=== PATIENT | female | born 1965 | race Caucasian/White ===

== ENCOUNTER → 2017-08-19 | Outpatient (CLI) | payer BC ==
[~2017-08-19] MED LIST: CARI350T27 PO; HYDR-34 PO; LEVO1TAB18 PO; SUMA100T3 PO; TRAZ-28 PO
--- NOTE | 2017-08-19 09:24 | Diagnostic Imaging Report ---
INDICATION: Routine screening. COMPARISON: 07/14/2015. TECHNIQUE: Screening digital mammography was performed bilaterally with a Computer Aided Detection (CAD) system. FINDINGS: Scattered fibroglandular densities are identified bilaterally. No discrete mass or malignant appearing microcalcifications are seen. The axillae are unremarkable. IMPRESSION: No mammographic features suspicious for malignancy are identified. ACR BI-RADS Category 1: Negative. Result letter will be mailed to the patient. Note: At least 10% of breast cancer is not imaged by mammography. Dictated by: Dictated on workstation # [id number]
== END ==
LOC: RAD 07:44
PROVIDERS: ATTEND Nurse Practitioner
DX: Z12.31 Encounter for screening mammogram for malignant neoplasm of breast (principal)
CPT/HCPCS: 77067

== ENCOUNTER → 2018-05-21 | Outpatient (CLI) | payer BC ==
[~2018-05-21] MED LIST changes: +TRAZ-189 PO; -TRAZ-28 PO
--- NOTE | 2018-05-21 12:39 | Diagnostic Imaging Report ---
PROCEDURE: MRI lumbar spine. TECHNIQUE: Multiplanar, multisequence MRI of the lumbar spine was performed without contrast. INDICATION: Back pain. FINDINGS: The previous MRI lumbar spine exam of 03/03/2013 noted degenerative disc and bony disease at L5-S1 but failed to show any sign of spinal stenosis or nerve root encroachment at this level. On this exam, the degenerative disc and bony disease at the L5-S1 level seen previously is again evident and does not seem to have progressed. There is a disc bulge eccentric to the right at this level but there is no significant central stenosis identified. There does not appear to be any neuroforaminal narrowing either. The thecal sac is relatively generous. There is no sign of spinal stenosis or nerve root encroachment at any level. There is no abnormal signal arising from the cord or other vertebral bodies to indicate an acute abnormality. There is no sign of a paraspinal mass. IMPRESSION: 1. The degenerative disc and bony disease at L5-S1 seen previously has not progressed. There is still no evidence for spinal stenosis or nerve root encroachment at this level. 2. The remainder of the lumbar spine is stable as well. No new area of spinal stenosis or nerve root encroachment has developed. 3. There is no sign of an acute bony abnormality or of a cord lesion. Dictated by: Dictated on workstation # [id number]
== END ==
LOC: RAD 11:20
PROVIDERS: ATTEND Nurse Practitioner
DX: M51.37 Other intervertebral disc degeneration, lumbosacral region (principal); M89.9 Disorder of bone, unspecified
CPT/HCPCS: 72148

== ENCOUNTER → 2018-08-26 | Outpatient (CLI) | payer BC | LOC: CARD 13:11 | PROVIDERS: ATTEND Internal Medicine Cardiovascular Disease | DX: I08.1 Rheumatic disorders of both mitral and tricuspid valves (principal); R06.02 Shortness of breath; E78.2 Mixed hyperlipidemia; E66.9 Obesity, unspecified; R07.9 Chest pain, unspecified | CPT/HCPCS: 93306 ==

== ENCOUNTER → 2018-09-22 | Outpatient (CLI) | payer BC | LOC: CARD 10:20 | PROVIDERS: ATTEND Internal Medicine Cardiovascular Disease | DX: R07.9 Chest pain, unspecified (principal); R06.02 Shortness of breath; E78.2 Mixed hyperlipidemia; I08.1 Rheumatic disorders of both mitral and tricuspid valves; E66.9 Obesity, unspecified; Z68.28 Body mass index [BMI] 28.0-28.9, adult | CPT/HCPCS: 93351 ==

== ENCOUNTER → 2022-03-15 | Outpatient (CLI) | payer BC ==
[~2022-03-15] MED LIST changes: -TRAZ-189 PO; +TRZ50T PO
--- NOTE | 2022-03-15 13:32 | Diagnostic Imaging Report ---
Indication: Routine screening. Comparison is made with prior mammogram 08/19/2017 and 07/14/2015. 2-D and 3-D bilateral screening mammography was performed with CAD. CAD is utilized. The current study was also evaluated with a Computer Aided Detection (CAD) system. Scattered fibroglandular densities are identified bilaterally. There is a density in the right breast medial to the nipple line at mid depth best seen on the CC view which appears more prominent. Additional views are recommended. No definite correlate on the MLO view is seen. The left breast is unremarkable. No malignant-appearing microcalcifications are seen. Axillae are unremarkable. IMPRESSION: BI-RADS 0 Right breast density. Additional views are recommended for further evaluation. ACR BI-RADS Category 0: Incomplete. (Needs additional imaging evaluation). Result letter will be mailed to the patient. Note: At least 10% of breast cancer is not imaged by mammography. Dictated by: Dictated on workstation # [id number]
== END ==
LOC: RAD 10:15
PROVIDERS: ATTEND Nurse Practitioner
DX: Z12.31 Encounter for screening mammogram for malignant neoplasm of breast (principal)
CPT/HCPCS: 77063; 77067

== ENCOUNTER → 2022-03-26 | Outpatient (CLI) | payer BC ==
--- NOTE | 2022-03-26 15:41 | Diagnostic Imaging Report ---
INDICATION: Right breast density. COMPARISON: Correlation is made with the diagnostic mammogram from earlier this same day and screening mammogram from 03/15/2022. FINDINGS: Sonographic interrogation of the medial right breast was performed. There is a tiny hypoechoic nodule at the 3:30 location 3 to 4 cm from the nipple measuring 3 mm x 4 mm x 4 mm. No internal vascularity is seen. This has benign features. IMPRESSION: Benign-appearing hypoechoic nodule at the 3:30 location of the right breast, likely accounting for the mammographic density. Even so, followup right mammogram and right breast ultrasound in 6 months is recommended to show continued stability. ACR BI-RADS Category 3: Probably benign findings. Dictated by: Dictated on workstation # [id number]
--- NOTE | 2022-03-26 19:25 | Diagnostic Imaging Report ---
INDICATION: Right breast density. Patient presents for additional views. Correlation is made with screening study from 03/15/2022 Unilateral right 2-D and 3-D diagnostic mammography was performed with CAD. Secluded spot compression CC as well as spot compression mediolateral and conventional mediolateral views. Additional views show a persistent nodular density in the medial right breast approximately 4 cm from the nipple. No other abnormalities are seen. IMPRESSION: BI-RADS 0 Persistent density medial right breast at approximately the 3:00 location 4 cm from the nipple. Further evaluation with ultrasound is recommended and will be performed today. ACR BI-RADS Category 0: Incomplete. (Needs additional imaging evaluation). Result letter will be mailed to the patient. Note: At least 10% of breast cancer is not imaged by mammography. Dictated by: Dictated on workstation # [id number]
== END ==
LOC: RAD 12:29
PROVIDERS: ATTEND Nurse Practitioner
DX: N63.14 Unspecified lump in the right breast, lower inner quadrant (principal)
CPT/HCPCS: 76642; 77065; G0279

== ENCOUNTER → 2022-10-03 | Outpatient (CLI) | payer BC ==
--- NOTE | 2022-10-03 14:06 | Diagnostic Imaging Report ---
INDICATION: Right breast nodule. Patient presents for followup. Correlation is made with diagnostic mammogram earlier same day as well as prior right breast ultrasound from 03/26/2022. Sonographic interrogation medial right breast was performed. Tiny cyst 3:30 location, 3-4 cm from the nipple is noted measuring 3 mm x 2 mm x 3 mm. This is compared with 4 x 4 x 3 mm on prior exam. No internal vascularity is seen. No other masses are identified. IMPRESSION: Slight decrease in size of a simple cyst 3:30 location right breast when compared to examination from 6 months earlier. Patient may return to routine annual screening mammography in 6 months. ACR BI-RADS Category 2: Benign findings. Result letter will be mailed to the patient. Note: At least 10% of breast cancer is not imaged by mammography. BI-RADS Category 2 Dictated by: Dictated on workstation # [id number]
--- NOTE | 2022-10-03 15:48 | Diagnostic Imaging Report ---
INDICATION: Right breast nodule. Patient presents for six-month followup. Correlation is made with prior mammogram from 03/15/2022 and 08/19/2017. Unilateral right 2-D and 3-D diagnostic mammography was performed with CAD. Scattered fibroglandular densities in the right breast are noted. Previously noted nodule in the medial right breast appears to be smaller on today's study. No new mass is identified. No malignant-appearing microcalcifications are seen. The right axilla is unremarkable. IMPRESSION: Previously noted nodule appears smaller. Even so, sonographic interrogation of the medial right breast is recommended and will be performed today. ACR BI-RADS Category 0: Incomplete. (Needs additional imaging evaluation). Result letter will be mailed to the patient. Note: At least 10% of breast cancer is not imaged by mammography. BI-RADS 0 Dictated by: Dictated on workstation # [id number]
== END ==
LOC: RAD 12:20
PROVIDERS: ATTEND Nurse Practitioner
DX: N63.14 Unspecified lump in the right breast, lower inner quadrant (principal)
CPT/HCPCS: 76642; 77065; G0279